=== PATIENT | male | born 1955 | race Caucasian/White ===

== ENCOUNTER → 2018-09-06 | Outpatient (CLI) | payer OTHER ==
--- NOTE | 2018-09-07 09:10 | PCVCIMAG ---
APPROVED REPORT Study performed: 09/06/2018 14:55:05 EXAM: Comprehensive 2D, Doppler, and color-flow Echocardiogram Patient Location: Echo lab Status: routine BSA: 1.68 HR: 114 bpmBP: 138/78 mmHg Rhythm: Tachycardia Other Information Study Quality: Adequate Risk Factors: Cardiac Risk Factors: HTN, Hyperlipidemia, DM Indications Tachycardia ICD Hx Dilated Cardiomyopathy 2D Dimensions IVSd: 11.45 (7-11mm)LVOT Diam: 21.00 (18-24mm) LVDd: 35.00 mm PWd: 10.90 (7-11mm)Ascending Ao: 34.55 (22-36mm) LVDs: 25.30 (25-40mm) Left Atrium: 34.17 (27-40mm) Aortic Root: 32.68 mm LV Single Plane 4CH: 58.74 % LV Single Plane 2CH: 67.26 % Biplane EF: 59.7 % Volumes Left Atrial Volume (Systole) Single Plane 4CH: 45.87 mLSingle Plane 2CH: 36.27 mL LA ESV Index: 26.00 mL/m2 Aortic Valve AoV Peak Dontrell.: 1.74 m/s AO Peak Gr.: 12.16 mmHgLVOT Max P.83 mmHg LVOT Max V: 1.10 m/s PARMINDER Vmax: 2.26 cm2 AI Vmax: 4.08 m/s AI Mason: 1.70 m/s2 AI PHT: 697.65 ms Mitral Valve E/A Ratio: 0.6 MV Decel. Time: 127.93 ms MV E Max Dontrell.: 0.54 m/s MV A Dontrell.: 0.93 m/s IVRT: 34.60 ms TDI E/Lateral E': 6.75E/Medial E': 4.91 Medial E' Dontrell.: 0.11 m/s Lateral E' Dontrell.: 0.08 m/s Pulmonary Valve PV Peak Dontrell.: 1.08 m/sPV Peak Gr.: 4.65 mmHg Pulmonary Vein P Vein S: 0.44 m/sP Vein A: 0.29 m/s P Vein D: 0.80 m/sP Vein A Dur.: 103.8 msec P Vein S/D Ratio: 0.55 Tricuspid Valve TR Peak Dontrell.: 2.70 m/sRAP Estimate: 7.00 mmHg TR Peak Gr.: 29.21 mmHg PA Pressure: 36.00 mmHg Left Ventricle The left ventricle is normal size. There is normal LV segmental wall motion. Borderline concentric left ventricular hypertrophy. Left ventricular systolic function is normal. The left ventricular ejection fraction is within the normal range. LVEF is 55-60%. Grade I - abnormal relaxation pattern. Right Ventricle The right ventricle is normal size. The right ventricular systolic function is normal. Atria The left atrium size is normal. The right atrium size is normal. Aortic Valve The aortic valve is normal in structure. Trace aortic regurgitation. There is no aortic valvular stenosis. Mitral Valve The mitral valve is normal in structure. Trace mitral regurgitation. No evidence of mitral valve stenosis. Tricuspid Valve The tricuspid valve is normal in structure. Trace to mild tricuspid regurgitation. Pulmonary artery pressure is 36 mmHg. Pulmonic Valve The pulmonary valve is normal in structure. Trace pulmonic regurgitation. Great Vessels The aortic root is normal in size. IVC is normal in size and collapses >50% with inspiration. Pericardium There is no pericardial effusion. <Conclusion> The left ventricle is normal size. LVEF is 55-60%. The aortic valve is normal in structure. Trace aortic regurgitation. The mitral valve is normal in structure. Trace mitral regurgitation. The tricuspid valve is normal in structure. Trace to mild tricuspid regurgitation. Pulmonary artery pressure is 36 mmHg. The pulmonary valve is normal in structure. Trace pulmonic regurgitation. There is no pericardial effusion.
== END | disposition home or self-care (01) ==
LOC: PCVCIMAG 14:57
PROVIDERS: ATTEND Internal Medicine
DX: I10 Essential (primary) hypertension (principal); I47.1 Supraventricular tachycardia; E11.9 Type 2 diabetes mellitus without complications
CPT/HCPCS: 93306